=== PATIENT | male | born 1935 | race Caucasian/White ===

== ENCOUNTER → 2017-05-30 10:09 | Outpatient (CLI) | payer MEDICARE, BC ==
[2015-07-31 15:16] VITALS: BMI 26.2
[~2017-05-30 10:09] MED LIST: BAYER CHEWABLE81 MG PO; HYDROCHLOROTH12.5 M1 PO; HYDROCODONE-APA1 TAB PO; LISINOPRIL10 MG PO; MULTIPLE VITAMI1 TA1 PO
== END | disposition home or self-care (01) ==
LOC: D.RAD 10:09
DX: M25.552 Pain in left hip (principal); M25.551 Pain in right hip; M54.9 Dorsalgia, unspecified